=== PATIENT | female | born 1965 | race Caucasian/White ===

== ENCOUNTER 2017-08-20 00:11 | Emergency (ER) | payer OTHER ==
[~2017-08-20] VITALS: Ht 165.1 cm; Wt 41.7 kg
[~2017-08-20 00:11] MED LIST: ADVAIR DISKU 11 UNIT INH; BACTRIM DS 8001 TAB PO; CLINDAMYCIN HY300 MG PO; HYDROXYZINE PAM50 MG PO; MONTELUKAST SOD10 MG PO; PERCOCET 325 MG1 TA2 PO; TRAZODONE50 MG PO; VENTOLIN H0.09 MG/Ac PO
[2017-08-20 00:41] VITALS: BP 112/59
--- NOTE | 2017-08-20 01:08 | ED ANKLE/FOOT INJURY COMPLAINT ---
History of Present Illness General Chief Complaint: General Adult Stated Complaint: "LT FOOT FEELS LIKE PINS AND NEEDLES" Source: patient, family, old records Exam Limitations: no limitations Vital Signs & Intake/Output Vital Signs & Intake/Output Vital Signs Date Time Temp Pulse Resp B/P B/P Pulse O2 O2 Flow FiO2 Mean Ox Delivery Rate 08/20 0041 98.0 80 18 112/59 98 Room Air Allergies Coded Allergies: MDX - PCN (penicillin) (PCN (PENICILLIN)) (PT REPORTS DOES NOT WORK ON HER 02/28) Reconcile Medications Albuterol Sulfate (Ventolin Hfa) 90 MCG HFA.AER.AD 1-2 PUFF PO Q4-6 PRN PRN COPD (Reported) Fluticasone-Salmeterol (Advair 100-50 Diskus) 100 MCG-50 MCG/DOSE BLST.W.DEV 1 PUF INH BID BREATHING PROBLEMS (Reported) Gabapentin (Neurontin) 300 MG CAPSULE 1 CAP PO TID PRN neuropathy Hydroxyzine Pamoate 50 MG CAPSULE 1 CAP PO TID MENTAL HEALTH (Reported) Montelukast Sodium 10 MG TABLET 1 TAB PO DAILY COPD (Reported) OXYCODONE HCL/ACETAMINOPHEN (Percocet 5-325 MG Tablet) 325 MG/5 MG TAB 1-2 TAB PO Q4-6 PRN PRN PAIN TRAZODONE HCL (Trazodone HCl) 50 MG TABLET 1 TAB PO QPM SLEEP (Reported) Triage Note: TRIAGE: PATIENT TO ER FROM HOME REPORTING BILATERAL FEET PINS AND NEEDLES X 3-4 DAYS WHEN TRYING TO SLEEP. PAIN 8/10. ON METHADONE 100MG DAILY QAM, REPORTS "I DON'T WANT ANY KIND OF NARCOTICS." Triage Nurses Notes Reviewed? yes Occurred: 3 days Duration: day(s):, constant, continues in ED Timing: recent history Severity: moderate, severe Pain/Injury Location: Bilateral: Foot. Method of Injury: twisted (right) No Modifying Factors: none Associated Symptoms: none, GCS 15 since LMP (ages 10-50): post menopausal : No Patient currently breastfeeds: No HPI: 3-4 days prior to admission patient complains of bilateral foot pain and tingling causing her to be unable to sleep. She recalls twisting her right ankle several days ago with no residual swelling and pain at this time to the ankle. She denies fever chills nausea vomiting diarrhea abdominal pain chest pain shortness breath headache dysuria rash bleeding change in medications. Past History Travel History Traveled to [place] past 21 day No Medical History Any Pertinent Medical History? see below for history Neurological: NONE EENT: NONE Cardiovascular: NONE Respiratory: asthma, COPD, emphysema Gastrointestinal: NONE Hepatic: NONE Renal: NONE Musculoskeletal: NONE Psychiatric: substance abuse Endocrine: hypothyroidism Blood Disorders: NONE Cancer(s): NONE COMMERCIAL ANNOUNCER/Reproductive: NONE Surgical History Surgical History: , ABCESS ON BREASTS PAROTID GLAND REMOVED Psychosocial History Who do you live with Son What is your primary language Estonian Tobacco Use: Current Daily Use Daily Tobacco Use Amount/Type: => 5 Cigarettes daily Family History Hx Contributory? No Review of Systems Review of Systems Constitutional: Reports: no symptoms. EENTM: Reports: no symptoms. Respiratory: Reports: no symptoms. Cardiovascular: Reports: no symptoms. GI: Reports: no symptoms. Genitourinary: Reports: no symptoms. Musculoskeletal: Reports: see HPI, muscle pain. Skin: Reports: no symptoms. Neurological/Psychological: Reports: see HPI, numbness. Hematologic/Endocrine: Reports: no symptoms. Immunologic/Allergic: Reports: no symptoms. All Other Systems: Reviewed and Negative Physical Exam Physical Exam General Appearance: well developed/nourished, alert, awake, anxious, moderate distress Head: atraumatic, normal appearance Eyes: Bilateral: PERRL, EOMI. Ears, Nose, Throat: normal pharynx, normal ENT inspection, hearing grossly normal Neck: normal inspection, supple Cardiovascular/Respiratory: regular rate/rhythm Back: normal inspection, normal range of motion Leg/Knee/Thigh Left: normal range of motion, normal inspection Leg/Knee/Thigh Right: normal range of motion, normal inspection Ankle Left: normal inspection, normal range of motion Ankle Right: normal inspection, normal range of motion Foot Left: normal inspection, normal range of motion Foot Right: normal inspection, normal range of motion Reflexes: 2+: knee (R), knee (L), ankle (R), ankle (L). Neuro/Vascular: normal motor function, normal sensation Tendon: normal tendon function Psychiatric: awake, alert, oriented x 3 Skin: intact, normal color, warm/dry Progress Differential Diagnosis: arterial insufficiency, fracture Plan of Care: Current Medications Sig/Yann Start time Last Medication Dose Stop Time Status Admin Gabapentin 300 MG ONCE ONE 01/11 0115 AC (Neurontin) 08/20 115 Departure Departure Time of Disposition: 107 Disposition: HOME OR SELF CARE Condition: Stable Clinical Impression Primary Impression: Peripheral neuropathy Referrals: Patient Has No Primary Care Dr (PCP/Family) Departure Forms: Customer Survey General Discharge Information Prescriptions: Current Visit Scripts Gabapentin (Neurontin) 1 CAP PO TID PRN neuropathy #50 CAP
[2017-08-20] MEDS ORDERED: NEURONTIN300 M1 PO ×2 (01:10→01:19)
== END 2017-08-20 01:21 ==
LOC: ERH 00:11
DX: G62.9 Polyneuropathy, unspecified (principal)